=== PATIENT | male | born 1985 | race Two or more races ===

== ENCOUNTER 2017-01-13 22:09 | Emergency (ER) | payer OTHER ==
[~2017-01-13] VITALS: Ht 170.2 cm; Wt 72.6 kg
[2017-01-13 22:13] VITALS: BP 111/73
[2017-01-13] MEDS ORDERED: levETIRAcetam 500 MG in D5W 110 ML IVPB ONE (22:15)
[2017-01-13] MEDS ORDERED: levETIRAcetam 500mg vial IV ONE (22:22)
[2017-01-14 00:26] VITALS: BP 121/85
[2017-01-14 01:02] LABS: APPEARANCE,URINE CLEAR; KETONES,URINE NEGATIVE (NEGATIVE); NITRITE,URINE NEGATIVE (NEGATIVE)
[2017-01-14 01:07] LABS: BASOPHILS % (AUTO) 0.4 % (0.0-2.0); EOSINOPHILS % (AUTO) 0.2 % (0.0-3.0); LYMPHOCYTES % (AUTO) 13.4 % (20.0-45.0); MEAN CORPUSCULAR HEMOGLOBIN 32.5 PG (27.0-31.0); MEAN CORPUSCULAR HGB CONC 36.6 G/DL (32.0-36.0); MEAN CORPUSCULAR VOLUME 89 FL (80-99); MEAN PLATELET VOLUME 8.7 FL (6.5-10.1); MONOCYTES % (AUTO) 3.5 % (1.0-10.0); NEUTROPHILS % (AUTO) 82.6 % (45.0-75.0); PLATELET COUNT 233 K/UL (150-450); RED BLOOD COUNT 4.77 M/UL (4.70-6.10); RED CELL DISTRIBUTION WIDTH 12.1 % (11.6-14.8); WHITE BLOOD COUNT 13.9 K/UL (4.8-10.8)
[2017-01-14 01:08] LABS: LEUKOCYTE ESTERASE ,URINE NEGATIVE (NEGATIVE); PH,URINE 7 (4.5-8.0); PROTEIN,URINE NEGATIVE (NEGATIVE); UROBILINOGEN,URINE NORMAL MG/DL (0.0-1.0)
[2017-01-14 01:18] LABS: ANION GAP 18 (5-15); CARBON DIOXIDE 16 mEQ/L (20-30); CHLORIDE 115 mEQ/L (98-107); CREATININE 0.5 mg/dL (0.7-1.2); GLOMERULAR FILTRATION RATE > 60 mL/min (>60); HEMOLYSIS 6; SODIUM 149 mEQ/L (135-145)
[2017-01-14 01:23] LABS: AMORPHOUS SEDIMENT,UR OCCASIONAL /LPF; BACTERIA,URINE OCCASIONAL /HPF; RBC,URINE 0-2 /HPF (0 - 0); SQUAMOUS EPITHELIAL CELL,UR OCCASIONAL /LPF (NONE/OCC); WBC,URINE 0-2 /HPF (0 - 0)
[2017-01-14 01:28] LABS: POTASSIUM 2.1 mEQ/L (3.4-4.9)
[2017-01-14 01:29] LABS: CALCIUM 5.6 mg/dL (8.6-10.2)
[2017-01-14 02:32] LABS: ANION GAP 20 (5-15); CARBON DIOXIDE 22 mEQ/L (20-30); CHLORIDE 106 mEQ/L (98-107); CREATININE 0.8 mg/dL (0.7-1.2); GLOMERULAR FILTRATION RATE > 60 mL/min (>60); HEMOLYSIS 8; POTASSIUM 3.2 mEQ/L (3.4-4.9); SODIUM 148 mEQ/L (135-145)
[2017-01-14 02:53] VITALS: BP 116/61
--- NOTE | 2017-01-14 05:26 | Emergency Room Report ---
History of Present Illness General Chief Complaint: Seizure Source: Family Member, EMS Present Illness HPI Is a 31-year-old gentleman with a history schizophrenia. He get monthly Haldol shot. He also takes with somewhat Cogentin. Initially he was brought in as seizure. He was unable to give a history. After several hours his family got here and able to give a better history. According to his mom he was out drinking with his friends andriy. He went home is very intoxicated and fell and hit the back of his head. He then had a seizure activity that lasted a few minutes. Afterward he was confused. Is no trauma. No tongue laceration. No incontinence of bowel or urine. After several hours he is now more awake but still confused per mom. There is no other injury. Allergies: Coded Allergies: No Known Allergies (Unverified , 01/23/16) Patient History Past Medical History: see triage record, old chart reviewed, psych hx Past Surgical History: other Pertinent Family History: none Social History: Reports: alcohol use Immunizations: other Reviewed Nursing Documentation: PMH: Agreed, PSxH: Agreed Nursing Documentation-PMH Hx Seizures: Yes Review of Systems Eye: Denies: blurred vision, eye pain ENT: Denies: ear pain, nose congestion, throat swelling Respiratory: Denies: cough, shortness of breath Cardiovascular: Denies: chest pain, palpitations Gastrointestinal: Denies: abdominal pain, diarrhea, nausea, vomiting Musculoskeletal: Denies: back pain, joint pain Skin: Denies: rash Neurological: Denies: headache, numbness Endocrine: Denies: increased thirst, increased urine Hematologic/Lymphatic: Denies: easy bruising All Other Systems: negative except mentioned in HPI Physical Exam Vital Signs Date Time Temp Pulse Resp B/P Pulse Ox O2 Delivery O2 Flow Rate FiO2 01/13/17 22:00 97.5 64 26 111/73 92 Room Air 01/13/17 22:13 2.0 vitals unremarkable Sp02 EP Interpretation: reviewed, normal General Appearance: well appearing, no apparent distress, other - Confused and sleepy, Postictal Head: normocephalic, atraumatic Eyes: bilateral eye EOMI, bilateral eye PERRL ENT: hearing grossly normal, normal pharynx Neck: full range of motion, supple, no meningismus Respiratory: chest non-tender, lungs clear, normal breath sounds Cardiovascular #1: regular rate, rhythm, no murmur Gastrointestinal: normal bowel sounds, non tender, no mass, no organomegaly, no bruit, non-distended Musculoskeletal: back normal, normal range of motion Psychiatric: mood/affect normal Skin: warm/dry Medical Decision Making Diagnostic Impression: Primary Impression: Encephalopathy acute Additional Impressions: Alcohol intoxication Qualified Codes: F10.120 - Alcohol abuse with intoxication, uncomplicated Head injury, acute Qualified Codes: S09.90XA - Unspecified injury of head, initial encounter ER Course Patient presents with severe alcohol intoxication. He also had head injury but no evidence of any bleed. He is improving now. No evidence of seizure since the history point toward more of a history of severe alcohol intoxication. He is better now. We'll discharge him to family. Lab Results Impression labs initially show hyponatremia. I suspect that this is secondary to being drawn from the IV line. Repeat one was unremarkable. Rhythm Strip Diag. Results EP Interpretation: yes Rate: 68 Rhythm: NSR, no PVC's, no ectopy CT/MRI/US Diagnostic Results CT/MRI/US Diagnostic Results : Imaging Test Ordered: CT head Impression read by radiologist. Negative. Last Vital Signs Date Time Temp Pulse Resp B/P Pulse Ox O2 Delivery O2 Flow Rate FiO2 01/14/17 02:53 97.5 78 20 116/61 100 Nasal Cannula 2.0 Status: improved Disposition: HOME, SELF-CARE Condition: Stable Referrals: [facility],REFERRING (PCP) Additional Instructions: Abstain from alcohol. Take your medication. Return it worse. MARCO A PÉREZ M.D. January 14, 2017 05:26
[2017-01-14 05:29] VITALS: BP 100/65
[2017-01-14 06:10] VITALS: BP 100/65
--- NOTE | 2017-01-14 08:13 | Diagnostic Imaging Report ---
Indications: Seizure, altered mental status Technique: Continuous helical CT imaging of the brain was performed with automatic exposure control on a Siemens sensation [address] scanner. Axial and coronal images were reconstructed at 5 mm slice thickness and interval. CTDI volume(s): 70 mGy Total DLP: 1474 mGy-cm Findings: Comparison: None. Ventricles, cisterns, sulci are mildly, diffusely prominent.. No evidence of mass or hemorrhage, other attenuation abnormality, mass effect, midline shift, hydrocephalus or increased intracranial pressure. Bone window images are unremarkable. Mild mucoperiosteal thickening, small polypoid soft tissue density right maxillary sinus. Remainder visualized Visualized paranasal sinuses and mastoid air cells are clear. IMPRESSION: No evidence of acute intracranial pathology. Early/subtle acute abnormalities may be missed, however. If clinically indicated, MRI of the brain without and with gadolinium may be of benefit in further evaluation Mild atrophy, prominent for age. Right maxillary sinus disease with small polyp versus retention cyst This correlates with [employer] preliminary report. The CT scanner at [facility] is accredited by the [employer] and the scans are performed using protocols designed to limit radiation exposure to as low as reasonably achievable to attain images of sufficient resolution adequate for diagnostic evaluation.
== END 2017-01-14 06:10 | disposition home or self-care (01) ==
LOC: EDBD 22:09 → EMR 23:00
DX: G93.40 Encephalopathy, unspecified (principal); F10.129 Alcohol abuse with intoxication, unspecified; E87.1 Hypo-osmolality and hyponatremia; S09.8XXA Other specified injuries of head, initial encounter; W19.XXXA Unspecified fall, initial encounter; Y92.89 Other specified places as the place of occurrence of the external cause; J32.0 Chronic maxillary sinusitis
CPT/HCPCS: 36415; 70450; 80048; 80300; 80329; 81001; 85025; 96360; 96361; 99284; J1953

== ENCOUNTER 2019-09-29 11:23 | Emergency (ER) | payer OTHER ==
[~2019-09-29] VITALS: Ht 167.6 cm; Wt 81.6 kg
[2019-09-29] MEDS ORDERED: Omnipaque-300 100ml vial INJ PRN (13:30)
--- NOTE | 2019-09-29 13:48 | NUR ---
ED Nurse Note: Patient walked into ER due to rectal pain with 'some bleeding' x 4 days; reports no fever, chills or constipation. No facial grimacing or guarding. Reports no truma. Patient awake, alert, oriented x 4. Regular, unlabored breathing noted. Ambulating with steady gait. Placed patient in hospital gown.
[2019-09-29 14:07] LABS: BASOPHILS % (AUTO) 1.1 % (0.0-2.0); EOSINOPHILS % (AUTO) 2.5 % (0.0-3.0); HEMATOCRIT 34.4 % (42.0-52.0); HEMOGLOBIN 13.1 G/DL (14.2-18.0); LYMPHOCYTES % (AUTO) 24.9 % (20.0-45.0); MEAN CORPUSCULAR VOLUME 86 FL (80-99); MONOCYTES % (AUTO) 7.2 % (1.0-10.0); NEUTROPHILS % (AUTO) 64.4 % (45.0-75.0); PLATELET COUNT 350 K/UL (150-450); RED BLOOD COUNT 3.98 M/UL (4.70-6.10); RED CELL DISTRIBUTION WIDTH 10.6 % (11.6-14.8); WHITE BLOOD COUNT 7.8 K/UL (4.8-10.8)
[2019-09-29 14:32] LABS: ANION GAP 8 mmol/L (5-15); BLOOD UREA NITROGEN 10 mg/dL (7-18); CALCIUM 8.3 MG/DL (8.5-10.1); CARBON DIOXIDE 28 MMOL/L (21-32); CHLORIDE 107 MMOL/L (98-107); POTASSIUM 3.9 MMOL/L (3.5-5.1); SODIUM 143 MMOL/L (136-145)
[2019-09-29 14:43] LABS: ALANINE AMINOTRANSFERASE 28 U/L (12-78); ALBUMIN 3.2 G/DL (3.4-5.0); ALBUMIN/GLOBULIN RATIO 0.9 (1.0-2.7); ALKALINE PHOSPHATASE 88 U/L (46-116); ASPARTATE AMINO TRANSFERASE 19 U/L (15-37); BILIRUBIN,TOTAL 0.5 MG/DL (0.2-1.0); CKMB 1.7 NG/ML (0.0-3.6); CREATINE KINASE 150 U/L (26-308)
[2019-09-29] MEDS ORDERED: Vancomycin 1 GM in NS 275 ML IVPB ONE (14:45)
[2019-09-29] MEDS ORDERED: Piperacillin/Tazobactam 3.375 GM in NS 110 ML IVPB ONE (14:45)
[2019-09-29 14:51] LABS: APPEARANCE,URINE CLEAR; BILIRUBIN, URINE NEGATIVE (NEGATIVE); GLUCOSE, URINE (UA) NEGATIVE (NEGATIVE); KETONES,URINE 1+ (NEGATIVE); LEUKOCYTE ESTERASE ,URINE NEGATIVE (NEGATIVE); NITRITE,URINE NEGATIVE (NEGATIVE); PH,URINE 6.5 (4.5-8.0); PROTEIN,URINE NEGATIVE (NEGATIVE); UROBILINOGEN,URINE NORMAL MG/DL (0.0-1.0)
--- NOTE | 2019-09-29 14:55 | Emergency Room Report ---
History of Present Illness General Chief Complaint: Pain Source: Patient Present Illness HPI Patient presents with mom. Patient is a special needs developmental delay patient, apparently has been complaining of rectal discomfort over the past several days And after looking family realized there was increased swelling and redness Also noticed increased discharge Guardian denies any fevers denies any vomiting Allergies: Coded Allergies: No Known Allergies (Unverified , 01/23/16) Patient History Past Medical History: see triage record Reviewed Nursing Documentation: PMH: Agreed; PSxH: Agreed Nursing Documentation-PMH Past Medical History: No Stated History Hx Seizures: Yes Review of Systems All Other Systems: negative except mentioned in HPI Physical Exam Vital Signs Date Time Temp Pulse Resp B/P (MAP) Pulse Ox O2 Delivery O2 Flow Rate FiO2 09/29/19 11:28 97.9 75 16 122/83 (96) 98 Room Air Sp02 EP Interpretation: reviewed, normal General Appearance: no apparent distress Head: normocephalic, atraumatic Eyes: bilateral eye PERRL, bilateral eye EOMI ENT: EOM grossly intact, normal pharynx Neck: supple Respiratory: lungs clear, no respiratory distress, no retraction Cardiovascular #1: regular rate, rhythm Gastrointestinal: soft Rectal: other - Bilateral perirectal area fluctuance palpable open wound towards the perineal area with discharge of pus Genitourinary: no CVA tenderness Musculoskeletal: normal inspection Neurologic: alert, oriented x3 Psychiatric: normal inspection Skin: other - As above Lymphatic: other Medical Decision Making Diagnostic Impression: Primary Impression: Perirectal abscess ER Course Given the history and presentation multiple differentials and consideration including but not limited to perirectal abscess Sherir gangrene Cellulitis Patient's exam is consistent and concerning for perirectal abscess broad- spectrum antibiotics and hydration is initiated Patient will require further inpatient care and surgical consultation Labs Test 09/29/19 13:30 09/29/19 13:57 White Blood Count 7.8 K/UL (4.8-10.8) Red Blood Count 3.98 M/UL (4.70-6.10) Hemoglobin 13.1 G/DL (14.2-18.0) Hematocrit 34.4 % (42.0-52.0) Mean Corpuscular Volume 86 FL (80-99) Mean Corpuscular Hemoglobin 33.0 PG (27.0-31.0) Mean Corpuscular Hemoglobin Concent 38.2 G/DL (32.0-36.0) Red Cell Distribution Width 10.6 % (11.6-14.8) Platelet Count 350 K/UL (150-450) Mean Platelet Volume 6.8 FL (6.5-10.1) Neutrophils (%) (Auto) 64.4 % (45.0-75.0) Lymphocytes (%) (Auto) 24.9 % (20.0-45.0) Monocytes (%) (Auto) 7.2 % (1.0-10.0) Eosinophils (%) (Auto) 2.5 % (0.0-3.0) Basophils (%) (Auto) 1.1 % (0.0-2.0) Prothrombin Time 10.8 SEC (9.30-11.50) Prothromb Time International Ratio 1.0 (0.9-1.1) Activated Partial Thromboplast Time 29 SEC (23-33) Sodium Level 143 MMOL/L (136-145) Potassium Level 3.9 MMOL/L (3.5-5.1) Chloride Level 107 MMOL/L (98-107) Carbon Dioxide Level 28 MMOL/L (21-32) Anion Gap 8 mmol/L (5-15) Blood Urea Nitrogen 10 mg/dL (7-18) Creatinine 1.0 MG/DL (0.55-1.30) Estimat Glomerular Filtration Rate > 60 mL/min (>60) Glucose Level 67 MG/DL (74-106) Lactic Acid Level 1.40 mmol/L (0.4-2.0) Calcium Level 8.3 MG/DL (8.5-10.1) Total Bilirubin 0.5 MG/DL (0.2-1.0) Aspartate Amino Transf (AST/SGOT) 19 U/L (15-37) Alanine Aminotransferase (ALT/SGPT) 28 U/L (12-78) Alkaline Phosphatase 88 U/L (46-116) Total Creatine Kinase 150 U/L (26-308) Creatine Kinase MB 1.7 NG/ML (0.0-3.6) Creatine Kinase MB Relative Index 1.1 Total Protein 6.9 G/DL (6.4-8.2) Albumin 3.2 G/DL (3.4-5.0) Globulin 3.7 g/dL Albumin/Globulin Ratio 0.9 (1.0-2.7) Lipase 122 U/L (73-393) Chest X-Ray Diagnostic Results Chest X-Ray Diagnostic Results : Chest X-Ray Ordered: Yes # of Views/Limited/Complete: 1 View Indication: Chest Pain EP Interpretation: Yes Interpretation: no consolidation, no effusion, no pneumothorax Impression: No acute disease Electronically Signed by: Woodrow Gabriel DO CT/MRI/US Diagnostic Results CT/MRI/US Diagnostic Results : Impression CT abdomen pelvisIMPRESSION: No acute findings appreciated. Study is limited by extensive breathing motion. 8 cm bulla at the anteromedial right lung base. The nature of the bolus is not known as there are multiple potential associations such as COPD or alpha-1 antitrypsin deficiency,. This is incidental finding that requires further clinical evaluation. Last Vital Signs Date Time Temp Pulse Resp B/P (MAP) Pulse Ox O2 Delivery O2 Flow Rate FiO2 09/29/19 13:47 16 Room Air 09/29/19 11:28 97.9 75 122/83 (96) 98 Status: improved Disposition: XFER SHT-TRM HOSP Condition: Improved Referrals: [facility]ERR[facility] (PCP) Woodrow Gabriel DO Sep 29, 2019 14:55
--- NOTE | 2019-09-29 15:00 | NUR ---
ED Nurse Note: Patient ambulating to the room with steady gait. Reports no bleeding.
[2019-09-29 15:06] LABS: COLOR,URINE YELLOW
--- NOTE | 2019-09-29 15:24 | Diagnostic Imaging Report ---
INDICATION: Abdominal pain TECHNIQUE: Continuous helical transaxial imaging of the abdomen and pelvis was obtained from the lung bases to the pubic symphysis during intravenous contrast administration. Coronal 2-D reformats were also obtained. Study obtained in a Siemens sensation [address] Automatic Exposure Control was utilized. Total Dose length Product (DLP): 825.[address] Dose Index Volume (CTDIvol): 14.2 mGy COMPARISON: None FINDINGS: Lungs: There is a prominent bulla measuring 8 cm at the anteromedial right lung base. There is breathing motion artifact but that the lung bases are clear otherwise. There is a small hiatal hernia.. Liver: Periportal edema noted. Gallbladder/biliary system: Gallbladder is contracted. No obvious biliary ductal dilatation appreciated.. Spleen: Unremarkable Pancreas: Unremarkable Kidneys: No hydronephrosis identified. Both kidneys enhance symmetrically.. Adrenal glands: Unremarkable Aorta/IVC: Unremarkable Bowel: There is no evidence of bowel obstruction. Portions of the appendix are seen and appear normal. Bladder: Unremarkable Peritoneum: There is no free fluid. Bones: Unremarkable IMPRESSION: No acute findings appreciated. Study is limited by extensive breathing motion. 8 cm bulla at the anteromedial right lung base. The nature of the bolus is not known as there are multiple potential associations such as COPD or alpha-1 antitrypsin deficiency,. This is incidental finding that requires further clinical evaluation. The CT scanner at [facility] is accredited by the [employer] and the scans are performed using dose optimization techniques as appropriate to a performed exam including Automatic Exposure control.
--- NOTE | 2019-09-29 16:27 | Diagnostic Imaging Report ---
Indication: Dyspnea Comparison: None A single view chest radiograph was obtained. Findings: Cardiomediastinal appearance is within normal limits for age. The lungs are clear. Pulmonary vascularity is appropriate. The diaphragmatic contour is smooth and costophrenic angles are sharp. No pleural effusions are identified. The bones are unremarkable. Impression: No acute findings
[2019-09-29 16:30] VITALS: BP 101/50
--- NOTE | 2019-09-29 17:43 | NUR ---
ED Nurse Note: Patient resting in bed. RN attempted to give report to [facility].
[2019-09-29 17:54] VITALS: BP 101/50
--- NOTE | 2019-09-29 18:00 | NUR ---
ED Nurse Note: Report given to CARMITA Headley at [facility]. Patient leaving the hospital with BLS ambulance accompanied by mother. Reports no pain or bleeding. No facial grimacing or guarding noted. Patient left ER with all his belongings.
== END 2019-09-29 18:00 | disposition short-term general hospital (02) ==
LOC: EMR 14:04
DX: K61.1 Rectal abscess (principal)
CPT/HCPCS: 36415; 71045; 74177; 80053; 81003; 82550; 82553; 83605; 83690; 85025; 85610; 85730; 87040; 93005; 96361; 96365; 96368; J2543; J3370; J7030; J7050; Q9967; Z7502; 99285

== ENCOUNTER 2020-10-06 10:50 | Emergency (ER) | payer OTHER ==
[~2020-10-06] VITALS: Ht 170.2 cm; Wt 76.2 kg
[2020-10-06] MEDS ORDERED: Haloperidol 5mg/ml Inj IM ONE (11:00)
[2020-10-06] MEDS ORDERED: LORazepam Inj 2mg/ml 1ml IM ONE (11:00)
[2020-10-06] MEDS ORDERED: LORazepam Inj 2mg/ml 1ml ONE (11:03)
[2020-10-06] MEDS ORDERED: Haloperidol 5mg/ml Inj ONE (11:03)
--- NOTE | 2020-10-06 11:16 | Emergency Room Report ---
History of Present Illness General Chief Complaint: Behavioral Complaint Present Illness HPI 34-year-old male here for psychotic behavior. Patient was at a [employer] throwing rocks at customers. When police arrived the patient was placed in custody and brought to the emergency department for 5150 hold. Patient is rambling incoherently and unable to answer questions appropriately. He has a medical alert bracelet on his left wrist that says "schizophrenia." Allergies: Coded Allergies: No Known Allergies (Unverified , 01/23/16) UNABLE TO ASSESS (Unverified , 10/06/20) pt unable to answer due to AMS status COVID-19 Screening Contact w/high risk pt: No Experienced COVID-19 symptoms?: No COVID-19 Testing performed RN TELE: No Nursing Documentation-[facility] Past Medical History Deferred: Pt Cognitively Impaired Hx Seizures: Yes Review of Systems All Other Systems: limited - Able to be obtained secondary to bizarre behavior Physical Exam Vital Signs Date Time Temp Pulse Resp B/P (MAP) Pulse Ox O2 Delivery O2 Flow Rate FiO2 10/06/20 10:42 98.4 111 20 132/100 (111) 99 Room Air Sp02 EP Interpretation: reviewed, normal General Appearance: no apparent distress, alert, non-toxic, other - Erratic behavior, yelling obscenities Head: normocephalic, atraumatic Eyes: bilateral eye normal inspection, bilateral eye PERRL ENT: hearing grossly normal, normal pharynx, no angioedema, normal voice Neck: full range of motion, supple/symm/no masses Respiratory: chest non-tender, lungs clear, normal breath sounds, speaking full sentences Cardiovascular #1: regular rate, rhythm, no edema Cardiovascular #2: 2+ carotid (R), 2+ carotid (L), 2+ radial (R), 2+ radial (L), 2+ dorsalis pedis (R), 2+ dorsalis pedis (L) Gastrointestinal: normal bowel sounds, non tender, soft, non-distended, no guarding, no rebound Rectal: deferred Genitourinary: normal inspection, no CVA tenderness Musculoskeletal: back normal, normal range of motion, gait/station normal, non- tender Neurologic: alert, motor strength/tone normal, sensory intact, responsive, speech normal Psychiatric: other - Erratic behavior. Rambling incoherently and yelling obscenities Lymphatic: no adenopathy Medical Decision Making Diagnostic Impression: Primary Impression: Behavioral disorder ER Course Laboratory Tests Test 10/06/20 11:40 White Blood Count 6.4 K/UL (4.8-10.8) Red Blood Count 4.34 M/UL (4.70-6.10) L Hemoglobin 13.2 G/DL (14.2-18.0) L Hematocrit 38.4 % (42.0-52.0) L Mean Corpuscular Volume 88 FL (80-99) Mean Corpuscular Hemoglobin 30.3 PG (27.0-31.0) Mean Corpuscular Hemoglobin Concent 34.3 G/DL (32.0-36.0) Red Cell Distribution Width 12.3 % (11.6-14.8) Platelet Count 234 K/UL (150-450) Mean Platelet Volume 7.4 FL (6.5-10.1) Neutrophils (%) (Auto) 65.0 % (45.0-75.0) Lymphocytes (%) (Auto) 19.5 % (20.0-45.0) L Monocytes (%) (Auto) 11.9 % (1.0-10.0) H Eosinophils (%) (Auto) 2.3 % (0.0-3.0) Basophils (%) (Auto) 1.3 % (0.0-2.0) Sodium Level 143 MMOL/L (136-145) Potassium Level 3.5 MMOL/L (3.5-5.1) Chloride Level 109 MMOL/L (98-107) H Carbon Dioxide Level 22 MMOL/L (21-32) Anion Gap 12 mmol/L (5-15) Blood Urea Nitrogen 9 mg/dL (7-18) Creatinine 0.8 MG/DL (0.55-1.30) Estimated Glomerular Filtration Rate > 60 mL/min (>60) Glucose Level 87 MG/DL (74-106) Calcium Level 8.0 MG/DL (8.5-10.1) L Total Bilirubin 0.6 MG/DL (0.2-1.0) Aspartate Amino Transferase (AST) 43 U/L (15-37) H Alanine Aminotransferase (ALT) 42 U/L (12-78) Alkaline Phosphatase 106 U/L (46-116) Total Protein 7.0 G/DL (6.4-8.2) Albumin 3.5 G/DL (3.4-5.0) Globulin 3.5 g/dL Albumin/Globulin Ratio 1.0 (1.0-2.7) Salicylates Level 1.0 ug/mL (2.8-20) L Acetaminophen Level < 2 MCG/ML (10-30) L Serum Alcohol 156 mg/dL 34-year-old male here with psychotic behavior. Patient was throwing rocks at customers at 7[address] and was brought into the emergency department on a 5150 hold. Patient was brought in in police custody. On arrival he was screaming obscenities and acting erratically in the emergency department. Received Haldol and Ativan intramuscular injection and patient was resting soundly throughout the rest of his stay in the emergency department. Currently awaiting lab results for psychiatric clearance. Signed out to oncoming physician. Last Vital Signs Date Time Temp Pulse Resp B/P (MAP) Pulse Ox O2 Delivery O2 Flow Rate FiO2 10/06/20 11:08 113 18 Room Air 10/06/20 11:05 132/83 99 10/06/20 10:42 98.4 Benedict Manuel M.D. Oct 06, 2020 11:16
[2020-10-06 11:52] LABS: BASOPHILS % (AUTO) 1.3 % (0.0-2.0); EOSINOPHILS % (AUTO) 2.3 % (0.0-3.0); HEMATOCRIT 38.4 % (42.0-52.0); HEMOGLOBIN 13.2 G/DL (14.2-18.0); LYMPHOCYTES % (AUTO) 19.5 % (20.0-45.0); MEAN CORPUSCULAR VOLUME 88 FL (80-99); MONOCYTES % (AUTO) 11.9 % (1.0-10.0); PLATELET COUNT 234 K/UL (150-450); RED BLOOD COUNT 4.34 M/UL (4.70-6.10); RED CELL DISTRIBUTION WIDTH 12.3 % (11.6-14.8); WHITE BLOOD COUNT 6.4 K/UL (4.8-10.8)
[2020-10-06 12:04] LABS: ANION GAP 12 mmol/L (5-15); BLOOD UREA NITROGEN 9 mg/dL (7-18); CARBON DIOXIDE 22 MMOL/L (21-32); CHLORIDE 109 MMOL/L (98-107); CREATININE 0.8 MG/DL (0.55-1.30); POTASSIUM 3.5 MMOL/L (3.5-5.1); SODIUM 143 MMOL/L (136-145)
[2020-10-06 12:08] LABS: ALANINE AMINOTRANSFERASE 42 U/L (12-78); ALBUMIN 3.5 G/DL (3.4-5.0); ALKALINE PHOSPHATASE 106 U/L (46-116); ASPARTATE AMINO TRANSFERASE 43 U/L (15-37); BILIRUBIN,TOTAL 0.6 MG/DL (0.2-1.0)
[2020-10-06 13:27] VITALS: BP 98/60
[2020-10-06 15:20] VITALS: BP 113/70
[2020-10-06] MEDS ORDERED: LORazepam 1mg tab ORAL ONE (18:15)
[2020-10-06 18:50] VITALS: BP 107/70
[2020-10-06 19:45] VITALS: BP 112/78
[2020-10-06 21:40] VITALS: BP 110/68
[2020-10-06 23:54] VITALS: BP 116/64
[2020-10-07 02:30] VITALS: BP 116/69
[2020-10-07 05:10] VITALS: BP 117/72
[2020-10-07 07:33] VITALS: BP 123/78
[2020-10-07 07:37] VITALS: BP 123/78
[2020-10-07] MEDS ORDERED: Haloperidol Decanoate (Long Acting) 50mg Inj IM ONE (10:15)
--- NOTE | 2020-10-08 08:14 | Consultation ---
DATE OF CONSULTATION: 10/07/2020 PSYCHIATRIC EVALUATION HISTORY OF PRESENT ILLNESS: This is a 34-year-old male with a history of psychotic disorder who has been admitted to the hospital on a 5150. The patient denies any suicidal or homicidal ideation. The patient is paranoid and disorganized. The patient is admitted on a 5150. The patient is requesting to be discharged. The patient is calm, manageable, has oriented thought process. He stated that he is not having any suicidal or homicidal ideation, however, is disorganized. PAST PSYCHIATRIC HISTORY: Significant for schizophrenia and has a psychiatric hospitalization, noncompliant with medication. PAST MEDICAL HISTORY: None. ALLERGIES: No known drug allergies. SUBSTANCE ABUSE HISTORY: Denies any history of substance use disorder. Denying any current use. SOCIAL HISTORY: The patient is from [place] and is homeless. Denies any legal issues. MENTAL STATUS EXAMINATION: The patient is alert, oriented times self and place. Mood is dysphoric. Affect is blunted. Thought process is concrete. Thought content, there is no suicidal or homicidal ideation. Cognition is intact. Insight and judgment fair. ASSESSMENT: [place] I Schizophrenia. [place] II Deferred. [place] III None. [place] IV Low. [place] V 50 PLAN: 1. We will discontinue 5150. 2. The patient would like to be discharged. 3. The patient received Haldol decanoate shot. 4. Provide the patient with reality orientation and supportive therapy. Demetria Sandoval M.D. DR: Kiersten JOB#: [id number] CC:
== END 2020-10-07 12:22 | disposition home or self-care (01) ==
LOC: EDBD 10:50 → EMR 12:45
DX: F91.9 Conduct disorder, unspecified (principal); F23 Brief psychotic disorder; F10.129 Alcohol abuse with intoxication, unspecified; G40.909 Epilepsy, unspecified, not intractable, without status epilepticus; Y90.6 Blood alcohol level of 120-199 mg/100 ml
CPT/HCPCS: 36415; 80053; 80307; 85025; 96372; 99284; G0480